=== PATIENT | male | born 1985 | race African-American/Black ===

== ENCOUNTER 2017-12-29 07:20 | Emergency (ER) | payer OTHER ==
[~2017-12-29] VITALS: Ht 177.8 cm; Wt 94.3 kg
[2017-12-29] MEDS ORDERED: ZOFRAN ODT4 MG PO (09:10)
[2017-12-29 09:15] VITALS: BP 142/87
== END 2017-12-29 09:21 | disposition home or self-care (01) ==
LOC: ER 07:20
DX: R11.2 Nausea with vomiting, unspecified (principal); R50.9 Fever, unspecified; F17.210 Nicotine dependence, cigarettes, uncomplicated

== ENCOUNTER 2021-02-07 18:23 | Emergency (ER) | payer OTHER ==
[~2021-02-07] VITALS: Ht 177.8 cm; Wt 94.3 kg
[~2021-02-07 18:23] MED LIST: ZOFRAN ODT4 MG PO
[2021-02-07] MEDS ORDERED: AUGMENTIN 875-1 EACH PO (20:27)
[2021-02-07 20:48] VITALS: BP 111/60
== END 2021-02-07 20:48 | disposition home or self-care (01) ==
LOC: ER 18:23
DX: J02.9 Acute pharyngitis, unspecified (principal); F17.210 Nicotine dependence, cigarettes, uncomplicated